=== PATIENT | female | born 1975 | race Caucasian/White ===

== ENCOUNTER 2020-12-14 08:40 | Outpatient (CLI) | payer BC, OTHER | END 2020-12-14 08:41 | disposition home or self-care (01) | LOC: CSHCT 08:40 | PROVIDERS: ATTEND Physician Assistant Medical | DX: R19.4 Change in bowel habit (principal); R19.5 Other fecal abnormalities; K92.1 Melena; K21.9 Gastro-esophageal reflux disease without esophagitis; R10.32 Left lower quadrant pain | CPT/HCPCS: 74177 ==

== ENCOUNTER 2021-02-12 09:56 | Outpatient (CLI) | payer BC, OTHER | END 2021-02-12 09:57 | disposition home or self-care (01) | LOC: CSHULT 09:56 | PROVIDERS: ATTEND Internal Medicine Gastroenterology | DX: R11.0 Nausea (principal); K76.0 Fatty (change of) liver, not elsewhere classified | CPT/HCPCS: 76705 ==

== ENCOUNTER 2021-02-16 10:22 | Outpatient (CLI) | payer BC, OTHER | END 2021-02-16 10:23 | disposition home or self-care (01) | LOC: CSHMAMMO 10:22 | PROVIDERS: ATTEND Family Medicine | DX: Z12.31 Encounter for screening mammogram for malignant neoplasm of breast (principal); Z13.820 Encounter for screening for osteoporosis | CPT/HCPCS: 77063; 77067; 77080 ==

== ENCOUNTER 2023-09-09 10:38 | Outpatient (CLI) | payer BC, OTHER | END 2023-09-09 10:39 | disposition home or self-care (01) | LOC: CSHULT 10:38 | PROVIDERS: ATTEND Family Medicine | DX: R59.0 Localized enlarged lymph nodes (principal) | CPT/HCPCS: 76536 ==

== ENCOUNTER 2025-05-24 13:37 | Outpatient (CLI) | payer BC, OTHER | END 2025-05-24 13:38 | disposition home or self-care (01) | LOC: CSHMRI 13:37 | PROVIDERS: ATTEND Psychiatry & Neurology Neurology | DX: R90.89 Other abnormal findings on diagnostic imaging of central nervous system (principal); R51.9 Headache, unspecified; R90.82 White matter disease, unspecified | CPT/HCPCS: 70551 ==